=== PATIENT | female | born 1980 | race African-American/Black ===

== ENCOUNTER → 2017-01-10 | Outpatient (CLI) | payer MEDICAID ==
[2017-01-10 12:43] LABS: ABSOLUTE EOSINOPHILS # (AUTO) 0.1 10^3/uL (0.0-0.6); ABSOLUTE LYMPHOCYTES (AUTO) 2.1 10^3/uL (0.5-4.7); ABSOLUTE MONOCYTES (AUTO) 0.5 10^3/uL (0.1-1.4); ABSOLUTE NEUT (AUTO) 2.4 10^3/uL (1.7-8.2); BASOPHILS % (AUTO) 0.9 % (0-2); EOSINOPHILS % (AUTO) 1.8 % (0-6); HEMATOCRIT 29.5 % (36.0-47.0); HEMOGLOBIN 9.6 g/dL (12.0-15.5); HGB HCT DIFFERENCE -0.7; LYMPHOCYTES % (AUTO) 40.8 % (13-45); MEAN CORPUSCULAR HEMOGLOBIN 23.5 pg (27.0-33.4); MEAN CORPUSCULAR HGB CONC 32.5 g/dL (32.0-36.0); MEAN CORPUSCULAR VOLUME 72 fl (80-97); MONOCYTES % (AUTO) 9.7 % (3-13); RED BLOOD COUNT 4.08 10^6/uL (3.72-5.28); RED CELL DISTRIBUTION WIDTH 15.2 % (11.5-14.0); SEGMENTED NEUTROPHILS % (AUTO) 46.8 % (42-78); WHITE BLOOD COUNT 5.1 10^3/uL (4.0-10.5)
[2017-01-10 13:21] LABS: ALANINE AMINOTRANSFERASE 27 U/L (9-52); ALBUMIN 3.8 g/dL (3.5-5.0); ALKALINE PHOSPHATASE 78 U/L (38-126); ANION GAP 7 (5-19); ASPARTATE AMINO TRANSFERASE 28 U/L (14-36); BILIRUBIN,DIRECT 0.3 mg/dL (0.0-0.4); BILIRUBIN,TOTAL 1.2 mg/dL (0.2-1.3); BLOOD UREA NITROGEN 7 mg/dL (7-20); CALCIUM 9.4 mg/dL (8.4-10.2); CARBON DIOXIDE 26 mmol/L (22-30); CHLORIDE 105 mmol/L (98-107); CHOLESTEROL 132.36 mg/dL (0-200); CREATININE RESULT 0.82 mg/dL (0.52-1.25); Direct HDL 71 mg/dL (>40); GLUCOSE 74 mg/dL (75-110); POTASSIUM 4.4 mmol/L (3.6-5.0); SODIUM 138.2 mmol/L (137-145); TOTAL PROTEIN 7.4 g/dL (6.3-8.2); TRIGLYCERIDES 52 mg/dL (<150)
[2017-01-10 13:32] LABS: DIRECT LDL 40 mg/dL (<100)
--- NOTE | 2017-01-11 17:52 | RADIOLOGY REPORT (SQ) ---
EXAM DESCRIPTION: SACRUM AND COCCYX COMPLETED DATE/TIME: 01/10/2017 11:52 am REASON FOR STUDY: LOW BACK PAIN COMPARISON: None. NUMBER OF VIEWS: Three views. TECHNIQUE: AP, lateral, and tilt views of the sacrum and coccyx. LIMITATIONS: None. FINDINGS: MINERALIZATION: Normal. BONES: No acute fracture or dislocation. Mild bony sclerosis along the right and left SI joints with out joint space narrowing SOFT TISSUES: No soft tissue swelling. No foreign body. OTHER: No other significant finding. IMPRESSION: Mild bony sclerosis along both innominate bones at the SI joints from sacroiliitis. No SI joint space narrowing. TECHNICAL DOCUMENTATION: JOB ID: [id number] [employer]- All Rights Reserved
--- NOTE | 2017-01-11 17:53 | RADIOLOGY REPORT (SQ) ---
EXAM DESCRIPTION: LUMBAR SPINE COMPLETE COMPLETED DATE/TIME: 01/10/2017 11:52 am REASON FOR STUDY: LOW BACK PAIN COMPARISON: Sacrum films same date NUMBER OF VIEWS: Five views including obliques. TECHNIQUE: AP, lateral, oblique, and sacral radiographic images acquired of the lumbar spine. LIMITATIONS: None. FINDINGS: MINERALIZATION: Normal. SEGMENTATION: Normal. No transitional anatomy. ALIGNMENT: Normal. VERTEBRAE: Maintained height. No fracture or worrisome bone lesion. DISCS: Preserved height. No significant osteophytes or end plate irregularity. POSTERIOR ELEMENTS: Pedicles and facets are intact. No pars defect or posterior arch defects. HARDWARE: None in the spine. PARASPINAL SOFT TISSUES: Normal. PELVIS: Bilateral SI joint sclerosis without joint space narrowing OTHER: No other significant finding. IMPRESSION: Bilateral SI joint sclerosis Otherwise unremarkable lumbar spine films TECHNICAL DOCUMENTATION: JOB ID: [id number] [employer]- All Rights Reserved
== END ==
LOC: OD 11:10
PROVIDERS: ATTEND Family Medicine Geriatric Medicine
DX: E66.9 Obesity, unspecified (principal); J45.20 Mild intermittent asthma, uncomplicated; E53.8 Deficiency of other specified B group vitamins; Z79.899 Other long term (current) drug therapy
CPT/HCPCS: 36415; 72110; 72220; 80053; 80061; 82607; 84443; 85025

== ENCOUNTER → 2017-09-20 | Outpatient (CLI) | payer MEDICAID ==
[2017-09-20 17:38] LABS: FERRITIN 7.74 ng/mL (6.2-137.0)
[2017-09-20 17:43] LABS: IRON(TIBC) < 10.1 ug/dL (37-170)
== END ==
LOC: OD 16:00
PROVIDERS: ATTEND Family Medicine Geriatric Medicine
DX: D64.9 Anemia, unspecified (principal)
CPT/HCPCS: 36415; 82728; 83540; 83550; 84466

== ENCOUNTER → 2017-12-16 | Outpatient (CLI) | payer MEDICAID ==
[2017-12-18 18:21] LABS: ABSOLUTE BASOPHILS # (AUTO) 0.1 10^3/uL (0.0-0.2); ABSOLUTE LYMPHOCYTES (AUTO) 2.2 10^3/uL (0.5-4.7); ABSOLUTE MONOCYTES (AUTO) 0.5 10^3/uL (0.1-1.4); ABSOLUTE NEUT (AUTO) 3.6 10^3/uL (1.7-8.2); ABSOLUTE RETICS # 0.076 10^6/uL (0.028-0.122); BASOPHILS % (AUTO) 0.9 % (0-2); EOSINOPHILS % (AUTO) 0.7 % (0-6); HEMATOCRIT 34.4 % (36.0-47.0); HEMOGLOBIN 11.1 g/dL (12.0-15.5); LYMPHOCYTES % (AUTO) 34.6 % (13-45); MEAN CORPUSCULAR HEMOGLOBIN 23.9 pg (27.0-33.4); MEAN CORPUSCULAR HGB CONC 32.2 g/dL (32.0-36.0); MEAN CORPUSCULAR VOLUME 74 fl (80-97); MONOCYTES % (AUTO) 7.9 % (3-13); PLATELET COUNT 273 10^3/uL (150-450); RED BLOOD COUNT 4.64 10^6/uL (3.72-5.28); RED CELL DISTRIBUTION WIDTH 15.8 % (11.5-14.0); RETICULOCYTE COUNT (AUTO) 1.64 % (0.66-2.85); SEGMENTED NEUTROPHILS % (AUTO) 55.9 % (42-78); TOTAL CELLS COUNTED % (AUTO) 100 %; WHITE BLOOD COUNT 6.4 10^3/uL (4.0-10.5)
[2017-12-18 18:35] LABS: IRON(TIBC) 26.1 ug/dL (37-170)
--- NOTE | 2017-12-19 08:18 | RADIOLOGY REPORT (SQ) ---
EXAM DESCRIPTION: C SP 4 OR 5 VIEWS COMPLETED DATE/TIME: 12/18/2017 6:07 pm REASON FOR STUDY: NECK PAIN M54.2 CERVICALGIA COMPARISON: None. NUMBER OF VIEWS: Five views. TECHNIQUE: AP, lateral, obliques and odontoid radiographic images acquired of the cervical spine. LIMITATIONS: None. FINDINGS: MINERALIZATION: Normal. ALIGNMENT: Anatomic. VERTEBRAE: Vertebral bodies of normal height. DISCS: No significant osteophytes or sclerosis. Disc height maintained. FORAMINA: No osteophytes or foraminal narrowing. LATERAL AND POSTERIOR ELEMENTS: Facets, lateral masses and spinous processes without significant find ings. HARDWARE: None in the spine. SOFT TISSUES: No masses or calcifications. Lung apices clear. OTHER: No other significant finding. IMPRESSION: NO SIGNIFICANT RADIOGRAPHIC FINDING IN THE CERVICAL SPINE. TECHNICAL DOCUMENTATION: JOB ID: [id number] [employer]- All Rights Reserved Reading location - IP/workstation name: [email or web address]
[2017-12-23 13:37] LABS: HGB A 97.5 % (96.4-98.8); HGB A2 1.3 % (1.8-3.2); HGB SOLUBILITY RESULT Negative (Negative)
== END ==
LOC: OD 17:13
PROVIDERS: ATTEND Family Medicine Geriatric Medicine
DX: M54.2 Cervicalgia (principal); D64.9 Anemia, unspecified
CPT/HCPCS: 36415; 82728; 83020; 83540; 83550; 84466; 85025; 85045

== ENCOUNTER → 2017-12-18 | Outpatient (CLI) | payer MEDICAID ==
--- NOTE | 2017-12-19 08:18 | RADIOLOGY REPORT (SQ) ---
EXAM DESCRIPTION: C SP 4 OR 5 VIEWS COMPLETED DATE/TIME: 12/18/2017 6:07 pm REASON FOR STUDY: NECK PAIN M54.2 CERVICALGIA COMPARISON: None. NUMBER OF VIEWS: Five views. TECHNIQUE: AP, lateral, obliques and odontoid radiographic images acquired of the cervical spine. LIMITATIONS: None. FINDINGS: MINERALIZATION: Normal. ALIGNMENT: Anatomic. VERTEBRAE: Vertebral bodies of normal height. DISCS: No significant osteophytes or sclerosis. Disc height maintained. FORAMINA: No osteophytes or foraminal narrowing. LATERAL AND POSTERIOR ELEMENTS: Facets, lateral masses and spinous processes without significant findings. HARDWARE: None in the spine. SOFT TISSUES: No masses or calcifications. Lung apices clear. OTHER: No other significant finding. IMPRESSION: NO SIGNIFICANT RADIOGRAPHIC FINDING IN THE CERVICAL SPINE. TECHNICAL DOCUMENTATION: JOB ID: [id number] [employer]- All Rights Reserved Reading location - IP/workstation name: [email or web address] <Electronically signed by VALERIY MCKEON MD in OV> 12/19/17 0818 MTDD
== END ==
LOC: OD 17:58
PROVIDERS: ATTEND Family Medicine Geriatric Medicine
DX: M54.2 Cervicalgia (principal)
CPT/HCPCS: 72050

== ENCOUNTER → 2018-02-20 | Outpatient (CLI) | payer BC ==
--- NOTE | 2018-02-20 09:51 | RADIOLOGY REPORT (SQ) ---
EXAM DESCRIPTION: FOOT LEFT COMPLETE COMPLETED DATE/TIME: 02/20/2018 9:36 am REASON FOR STUDY: LEFT FOOT AND ANKLE PAIN COMPARISON: None. NUMBER OF VIEWS: Three views. TECHNIQUE: AP, lateral and oblique radiographic images acquired of the left foot. LIMITATIONS: None. FINDINGS: MINERALIZATION: Normal. BONES: No acute fracture or dislocation. No worrisome bone lesions. JOINTS: Hallux valgus deformity at the first metatarsophalangeal joint with associated bunion. SOFT TISSUES: No soft tissue swelling. No foreign body. OTHER: No other significant finding. IMPRESSION: 1. No acute osseous findings. 2. Hallux valgus deformity at the first metatarsophalangeal joint and associated bunion. TECHNICAL DOCUMENTATION: JOB ID: [id number] [employer]- All Rights Reserved Reading location - IP/workstation name: [email or web address]
--- NOTE | 2018-02-20 09:52 | RADIOLOGY REPORT (SQ) ---
EXAM DESCRIPTION: ANKLE LEFT COMPLETE COMPLETED DATE/TIME: 02/20/2018 9:36 am REASON FOR STUDY: LEFT FOOT AND ANKLE PAIN COMPARISON: None. NUMBER OF VIEWS: Three views. TECHNIQUE: AP, lateral, and oblique radiographic images acquired of the left ankle. LIMITATIONS: None. FINDINGS: MINERALIZATION: Normal. BONES: No acute fracture or dislocation. No worrisome bone lesions. JOINTS: No effusions. SOFT TISSUES: Mild soft tissue swelling external to the medial malleolus. No foreign body. OTHER: No other significant finding. IMPRESSION: 1. No acute osseous findings. 2. Mild soft tissue swelling. Correlation suggested. TECHNICAL DOCUMENTATION: JOB ID: [id number] [employer]- All Rights Reserved Reading location - IP/workstation name: [email or web address]
== END ==
LOC: OD 09:08
PROVIDERS: ATTEND Family Medicine Geriatric Medicine
DX: M25.572 Pain in left ankle and joints of left foot (principal)
CPT/HCPCS: 36415; 84550

== ENCOUNTER → 2018-04-04 | Outpatient (CLI) | payer BC ==
--- NOTE | 2018-04-04 12:52 | RADIOLOGY REPORT (SQ) ---
EXAM DESCRIPTION: U/S ABDOMEN COMPLETE W/O DOP COMPLETED DATE/TIME: 04/04/2018 9:46 am REASON FOR STUDY: LUQ PAIN (R10.12), EPIGASTRIC PAIN (R10.13), IRON DEFICIENCY (D50.0) R10.12 LEFT UPPER QUADRANT PAIN COMPARISON: None. TECHNIQUE: Dynamic and static grayscale images acquired of the abdomen and recorded on PACS. Additio nal selected color Doppler and spectral images recorded. LIMITATIONS: None. FINDINGS: PANCREAS: No masses. Visualized pancreatic duct normal caliber. LIVER: No masses. Increased echogenicity. LIVER VASCULATURE: Normal directional flow of the main portal vein and hepatic veins. GALLBLADDER: Multiple small gallstones. No wall thickening or pericholecystic fluid. ULTRASOUND-DETECTED BLANCAS'S SIGN: Negative. INTRAHEPATIC DUCTS AND COMMON DUCT: CBD and intrahepatic ducts normal caliber. No filling defects. INFERIOR VENA CAVA: Patent. AORTA: No aneurysm. RIGHT KIDNEY: Normal size, 10.5 cm. Normal echogenicity. No solid or suspicious masses. No hyd ronephrosis. No calcifications. LEFT KIDNEY: Normal size, 11 cm. Normal echogenicity. No solid or suspicious masses. No hydron ephrosis. No calcifications. SPLEEN: Normal size, 9.9 cm. No solid masses. PERITONEAL AND PLEURAL SPACES: No ascites or effusions. OTHER: No other significant finding. IMPRESSION: Cholelithiasis. Fatty infiltration of the liver. TECHNICAL DOCUMENTATION: JOB ID: [id number] [employer]- All Rights Reserved Reading location - IP/workstation name: [email or web address]
== END ==
LOC: RAD 08:01
PROVIDERS: ATTEND Internal Medicine Gastroenterology
DX: K80.20 Calculus of gallbladder without cholecystitis without obstruction (principal); R10.12 Left upper quadrant pain; R10.13 Epigastric pain; D50.0 Iron deficiency anemia secondary to blood loss (chronic)
CPT/HCPCS: 76700

== ENCOUNTER 2018-04-13 00:25 | Observation (INO) | payer BC ==
[2018-04-13] MEDS ORDERED: FENTANYL CITRATE INJ/PF 100 MCG/2 ML AMPUL IV ONE (01:23)
[2018-04-13] MEDS ORDERED: NORMAL SALINE 1000 ML 1,000 ML IV ONE (01:23)
[2018-04-13 01:40] LABS: ABSOLUTE BASOPHILS # (AUTO) 0.1 10^3/uL (0.0-0.2); ABSOLUTE EOSINOPHILS # (AUTO) 0.1 10^3/uL (0.0-0.6); ABSOLUTE LYMPHOCYTES (AUTO) 1.3 10^3/uL (0.5-4.7); ABSOLUTE MONOCYTES (AUTO) 0.5 10^3/uL (0.1-1.4); ABSOLUTE NEUT (AUTO) 6.2 10^3/uL (1.7-8.2); BASOPHILS % (AUTO) 0.8 % (0-2); EOSINOPHILS % (AUTO) 1.6 % (0-6); HEMATOCRIT 33.8 % (36.0-47.0); HEMOGLOBIN 11.1 g/dL (12.0-15.5); LYMPHOCYTES % (AUTO) 15.5 % (13-45); MEAN CORPUSCULAR HEMOGLOBIN 25.5 pg (27.0-33.4); MEAN CORPUSCULAR HGB CONC 32.9 g/dL (32.0-36.0); MEAN CORPUSCULAR VOLUME 78 fl (80-97); MONOCYTES % (AUTO) 6.5 % (3-13); PLATELET COUNT 263 10^3/uL (150-450); RED BLOOD COUNT 4.36 10^6/uL (3.72-5.28); RED CELL DISTRIBUTION WIDTH 16.2 % (11.5-14.0); SEGMENTED NEUTROPHILS % (AUTO) 75.6 % (42-78); TOTAL CELLS COUNTED % (AUTO) 100 %; WHITE BLOOD COUNT 8.2 10^3/uL (4.0-10.5)
[2018-04-13 02:07] LABS: ALANINE AMINOTRANSFERASE 74 U/L (9-52); ALBUMIN 3.7 g/dL (3.5-5.0); ALKALINE PHOSPHATASE 105 U/L (38-126); ANION GAP 8 (5-19); ASPARTATE AMINO TRANSFERASE 182 U/L (14-36); BILIRUBIN,DIRECT 0.4 mg/dL (0.0-0.4); BILIRUBIN,TOTAL 0.6 mg/dL (0.2-1.3); BLOOD UREA NITROGEN 9 mg/dL (7-20); CALCIUM 8.9 mg/dL (8.4-10.2); CARBON DIOXIDE 24 mmol/L (22-30); CHLORIDE 109 mmol/L (98-107); GLUCOSE 83 mg/dL (75-110); LIPASE 109.8 U/L (23-300); POTASSIUM 4.7 mmol/L (3.6-5.0); SODIUM 141.1 mmol/L (137-145); TOTAL PROTEIN 7.5 g/dL (6.3-8.2)
--- NOTE | 2018-04-13 02:11 | ER Document Report ---
ED General - General Chief Complaint: Abdominal Pain Stated Complaint: ABDOMINAL PAIN Time Seen by Provider: 04/13/18 01:05 Mode of Arrival: Ambulatory Information source: Patient, Relative TRAVEL OUTSIDE OF THE [place] IN LAST 30 DAYS: No - HPI Patient complains to provider of: abominal pain Onset: Other - This is a 37-year-old female that presents for evaluation of abdominal pain. She has had recurrent abdominal pain in the past for which she is undergone evaluation in the GI clinic undergoing endoscopy as well as colonoscopy without any other obvious cause being identified for abdominal pain she subsequently underwent abdominal ultrasound at which time she was identified to have some gallbladder stones and referred to a general surgeon. She has not had any visits to the general surgeon since the referral 3 weeks prior but has had multiple episodes of intermittent abdominal pain since then. She is uncertain whether or not it is related to gallbladder but is concerned tonight it began while they were at home without any other issues going on. Denies any fevers or chills denies any emesis does endorse intense abdominal pain worst in the epigastrium. - Related Data Allergies/Adverse Reactions: oxycodone [From Percocet] Allergy (Verified 04/13/18 01:47) Penicillins Allergy (Verified 04/13/18 01:47) Sulfa (Sulfonamide Antibiotics) Allergy (Verified 04/13/18 01:47) Past Medical History - General Information source: Patient, Relative - Social History Smoking Status: Unknown if Ever Smoked Frequency of alcohol use: None Drug Abuse: None Family History: Reviewed & Not Pertinent Patient has suicidal ideation: No Patient has homicidal ideation: No Renal/ Medical History: Reports: Hx Ovarian Cysts. Denies: Hx Peritoneal Dialysis Past Surgical History: Reports: Hx Abdominal Surgery - gastric sleeve Review of Systems - Review of Systems -: Yes All other systems reviewed and negative Physical Exam - Vital signs Vitals: Temp Pulse Resp BP Pulse Ox 98.4 F 87 20 112/76 100 04/13/18 00:43 04/13/18 00:43 04/13/18 00:43 04/13/18 00:43 04/13/18 00:43 - General General appearance: Anxious In distress: Moderate - HEENT Head: Normocephalic Eyes: Normal Conjunctiva: Normal Cornea: Normal Extraocular movements intact: Yes Eyelashes: Normal Pupils: PERRL - Respiratory Respiratory status: No respiratory distress Chest status: Nontender Breath sounds: Normal Chest palpation: Normal - Cardiovascular Rhythm: Regular Heart sounds: Normal auscultation Murmur: No - Abdominal Inspection: Normal Distension: No distension Tenderness: Yoder's sign Organomegaly: No organomegaly - Back Back: Normal - Extremities General upper extremity: Normal inspection, Nontender, Normal ROM, Normal strength General lower extremity: Normal inspection, Nontender, Normal ROM, Normal strength - Neurological Neuro grossly intact: Yes Cognition: Normal Orientation: AAOx4 [place] Coma Scale Eye Opening: Spontaneous Ger Coma Scale Verbal: Oriented [place] Coma Scale Motor: Obeys Commands [place] Coma Scale Total: 15 Speech: Normal Motor strength normal: LUE, RUE, LLE, RLE - Psychological Associated symptoms: Normal affect Course - Re-evaluation Re-evalutation: 37 yo female with concern for biliary colic. Will obtain cbc and lfts and ultrasound. will administer analgesia and antiemetic. Patient with noted gallstones, modestly elevated LFTs with a fatty liver infiltrate. She is persistently having pain despite administration of analgesia, given the concern for possible symptomatic Aubrie lithiasis will obtain surgical consult. Have spoken to Dr. Pepito Marcus, he agrees to admit this patient for potential cholecystectomy. Will defer administration of anti-biotic at this time. We will reassess as necessary while in emergency department. - Vital Signs Vital signs: Temp Pulse Resp BP Pulse Ox 97.8 F 79 24 H 109/68 100 04/13/18 01:44 04/13/18 01:44 04/13/18 01:44 04/13/18 01:44 04/13/18 01:44 - Laboratory Result Diagrams: 04/13/18 01:30 04/13/18 01:30 Laboratory results interpreted by me: 04/13/18 04/13/18 01:30 01:30 Hgb 11.1 L Hct 33.8 L MCV 78 L MCH 25.5 L RDW 16.2 H Chloride 109 H AST 182 H ALT 74 H Discharge - Discharge Clinical Impression: Biliary colic Abdominal pain Qualifiers: Abdominal location: unspecified location Qualified Code(s): R10.9 - Unspecified abdominal pain Disposition: ADMITTED INPATIENT Admitting Provider: Surgicalist Unit Admitted: Surgical Floor Referrals: LUIS SHEA MD [Primary Care Provider] - Follow up as needed
[2018-04-13 02:41] LABS: APPEARANCE,URINE CLEAR; BILIRUBIN,URINE NEGATIVE (NEGATIVE); COLOR,URINE STRAW; GLUCOSE, URINE NEGATIVE (NEGATIVE); KETONES,URINE NEGATIVE (NEGATIVE); LEUKOCYTE ESTERASE,URINE NEGATIVE (NEGATIVE); NITRITE,URINE NEGATIVE (NEGATIVE); PROTEIN,URINE NEGATIVE (NEGATIVE); URINE SPECIFIC GRAVITY 1.005; UROBILINOGEN,URINE NEGATIVE mg/dL (<2.0)
--- NOTE | 2018-04-13 03:02 | RADIOLOGY REPORT (SQ) ---
EXAM DESCRIPTION: US ABDOMEN LIMITED COMPLETED DATE/TME: 04/13/2018 01:22 CLINICAL HISTORY: 37 years, Female, concern for cholecystitis COMPARISON: 04/04/2018 ultrasound. TECHNIQUE: Limited ultrasound of the right upper quadrant LIMITATIONS: None. FINDINGS: Echogenic appearance to the liver consistent with fatty infiltrative change. Multiple mobile shadowing stones throughout the gallbladder lumen. Patient had pain with palpation over the right upper quadrant. CBD measures 4.1 mm. The visualized portions of the right kidney, pancreas, and abdominal aorta are unremarkable. No ascites. No gallbladder wall thickening or pericholecystic fluid. IMPRESSION: Cholelithiasis. The patient had pain with palpation over the right upper quadrant. No gallbladder wall thickening or pericholecystic fluid. Fatty infiltrative change to the liver 2010 [employer]- All Rights Reserved
[2018-04-13] MEDS: MORPHINE SULFATE 10 MG/ML INJ IV PRN ×5 (04:17→22:08)
[2018-04-13] MEDS: NORMAL SALINE 1000 ML 1,000 ML IV PRN (04:18)
[2018-04-13] MEDS: ONDANSETRON HCL INJ/PF 4 MG/2 ML SDV IV PRN ×4 (08:41→22:08)
[2018-04-13] MEDS ORDERED: ROCURONIUM BROMIDE INJ 50 MG/5 ML VIAL IV ONE (09:40)
[2018-04-13] MEDS ORDERED: SUCCINYLCHOLINE CHLORIDE INJ 200 MG/10 ML VIAL ONE (09:40)
--- NOTE | 2018-04-13 13:31 | PDOC H&P ---
History of Present Illness Admission Date/PCP: 04/13/18 03:39 LUIS STAPLETON MD Patient complains of: Right upper quadrant/epigastric abdominal pain History of Present Illness: MADDY STERN is a 37 year old female admitted with severe right upper quadrant/epigastric abdominal pain. She was found to have gallstones on ultrasound. Patient has an extensive abdominal history. The patient underwent EGD and colonoscopy by Dr. Stapleton, which were normal. Patient has a history of gastric sleeve resection for weight loss. Most recently, the patient reports increasing difficulty with eating. Her last attack occurred after eating avocados followed by buttered popcorn. Her pain occurs in the right upper quadrant. It is crampy in nature and severe. It lasts for several hours and causes sweating and nausea. Nothing makes her pain better, eating makes it worse. The patient presented to the ER last night due to abdominal pain that would not subside. Her pain is improved today after receiving pain medications , but it is still present. Past Medical History Pulmonary Medical History: Reports: Asthma Musculoskeltal Medical History: Reports: Arthritis Hematology: Reports: Anemia Past Surgical History Past Surgical History: Reports: Other - Colonoscopy, EGD, gastric sleeve resection. Social History Smoking Status: Never Smoker Frequency of Alcohol Use: None Hx Recreational Drug Use: No Drugs: None Family History Family History: Reviewed & Not Pertinent Parental Family History Reviewed: Yes Children Family History Reviewed: Yes Sibling(s) Family History Reviewed.: Yes Medication/Allergy Home Medications: Diclofenac Sodium [Voltaren] 1 applic TP BID 04/13/18 Duloxetine HCl [Cymbalta 20 Mg Capsule.Dr] 20 mg PO DAILY 04/13/18 Prednisone 5 mg PO DAILY 04/13/18 Allergies/Adverse Reactions: oxycodone [From Percocet] Allergy (Verified 04/13/18 01:47) Penicillins Allergy (Verified 04/13/18 01:47) Sulfa (Sulfonamide Antibiotics) Allergy (Verified 04/13/18 01:47) Review of Systems Constitutional: ABSENT: chills, fever(s), weakness Eyes: ABSENT: visual disturbances Ears: ABSENT: hearing changes Nose, Mouth, and Throat: ABSENT: sore throat Cardiovascular: ABSENT: chest pain, dyspnea on exertion Respiratory: ABSENT: cough, dyspnea Gastrointestinal: PRESENT: abdominal pain, nausea, vomiting Genitourinary: ABSENT: dysuria Musculoskeletal: ABSENT: back pain Integumentary: ABSENT: pruritus, rash Neurological: ABSENT: abnormal movements, abnormal speech, confusion, convulsions, dizziness Psychiatric: ABSENT: anxiety, depression Endocrine: ABSENT: cold intolerance, heat intolerance Hematologic/Lymphatic: ABSENT: easy bleeding, easy bruising Physical Exam Vital Signs: Temp Pulse Resp BP Pulse Ox 97.6 F 69 12 117/72 100 04/13/18 07:31 04/13/18 07:31 04/13/18 07:31 04/13/18 07:31 04/13/18 07:31 Intake & Output 04/12/18 04/13/18 04/14/18 06:59 06:59 06:59 Intake Total 250 Balance 250 Weight 93.8 kg General appearance: PRESENT: no acute distress, obese Head exam: PRESENT: atraumatic, normocephalic Eye exam: PRESENT: EOMI, PERRLA. ABSENT: scleral icterus Mouth exam: PRESENT: moist, neck supple Teeth exam: ABSENT: poor dentation Neck exam: ABSENT: meningismus, tenderness, thyromegaly, tracheal deviation Respiratory exam: PRESENT: clear to auscultation liv. ABSENT: chest wall tenderness, rales, tachypnea Cardiovascular exam: PRESENT: RRR Pulses: PRESENT: normal radial pulses Vascular exam: ABSENT: pallor GI/Abdominal exam: PRESENT: soft, tenderness. ABSENT: rebound Rectal exam: PRESENT: deferred Extremities exam: ABSENT: clubbing Musculoskeletal exam: ABSENT: deformity Neurological exam: PRESENT: alert, awake, oriented to person, oriented to place , oriented to time, oriented to situation, CN II-XII grossly intact Psychiatric exam: ABSENT: agitated, anxious, depressed Focused psych exam: ABSENT: delusional Skin exam: ABSENT: cyanosis, erythema, jaundice Results Impressions: Abdomen Ultrasound 04/13/18 01:22 IMPRESSION: Cholelithiasis. The patient had pain with palpation over the right upper quadrant. No gallbladder wall thickening or pericholecystic fluid. Fatty infiltrative change to the liver 2010 [employer]- All Rights Reserved Assessment & Plan - Diagnosis (1) Gallstones Is this a current diagnosis for this admission?: Yes (2) Biliary colic Is this a current diagnosis for this admission?: Yes - Plan Summary Plan Summary: This is a patient with refractory right upper quadrant pain and gallstones. I believe the patient is experiencing early cystitis. I have admitted the patient the hospital. Plan for cholecystectomy DAVON. Risks/benefits discussed , informed consent obtained, and all questions answered.
[2018-04-13] MEDS ORDERED: ACETAMINOPHEN SUSP 160 MG/5 ML ORAL SYRING PO PRN (22:38)
[2018-04-13] MEDS ORDERED: ACETAMINOPHEN SOLN 325 MG/10.15 ML UDCUP ONE (22:57)
[2018-04-14] MEDS: MORPHINE SULFATE 10 MG/ML INJ IV PRN ×2 (03:09→12:18)
[2018-04-14] MEDS: ONDANSETRON HCL INJ/PF 4 MG/2 ML SDV IV PRN ×3 (03:09→17:19)
[2018-04-14] MEDS: NORMAL SALINE 1000 ML 1,000 ML IV PRN (03:10)
[2018-04-14 06:38] LABS: ALANINE AMINOTRANSFERASE 65 U/L (9-52); ALBUMIN 3.1 g/dL (3.5-5.0); ALKALINE PHOSPHATASE 89 U/L (38-126); ANION GAP 8 (5-19); ASPARTATE AMINO TRANSFERASE 64 U/L (14-36); BILIRUBIN,DIRECT 0.1 mg/dL (0.0-0.4); BILIRUBIN,TOTAL 0.7 mg/dL (0.2-1.3); BLOOD UREA NITROGEN 5 mg/dL (7-20); CALCIUM 8.8 mg/dL (8.4-10.2); CARBON DIOXIDE 24 mmol/L (22-30); CHLORIDE 109 mmol/L (98-107); GLUCOSE 75 mg/dL (75-110); SODIUM 141.3 mmol/L (137-145); TOTAL PROTEIN 6.3 g/dL (6.3-8.2)
[2018-04-14 06:45] LABS: POTASSIUM 4.3 mmol/L (3.6-5.0)
[2018-04-14] MEDS ORDERED: BUPIVACAINE HCL 0.5 % INJ/PF 30 ML SDV ONE (08:33)
[2018-04-14] MEDS ORDERED: METRONIDAZOLE 500 MG/NS RTU 500 MG/100 ML RTUPB IV ONE (08:42)
[2018-04-14] MEDS ORDERED: FENTANYL CITRATE INJ/PF 100 MCG/2 ML AMPUL ONE (09:09)
[2018-04-14] MEDS ORDERED: DEXAMETHASONE SOD PHOSPHATE INJ 4 MG/1 ML VIAL ONE (09:09)
[2018-04-14] MEDS ORDERED: ONDANSETRON HCL INJ/PF 4 MG/2 ML SDV ONE (09:09)
[2018-04-14] MEDS ORDERED: MIDAZOLAM 2 MG/2 ML INJ ONE (09:09)
[2018-04-14] MEDS ORDERED: LIDOCAINE 2% INJ-PF (20 MG/ML) 10 ML AMPUL ONE (09:09)
[2018-04-14] MEDS ORDERED: PROPOFOL INJ 200 MG/20 ML VIAL IV ONE (09:10)
[2018-04-14] MEDS ORDERED: ACETAMINOPHEN 1,000 MG/100 ML RTUPB IV ONE (09:10)
[2018-04-14] MEDS ORDERED: SUGAMMADEX SODIUM 200 MG/2 ML SDV IV ONE (09:16)
--- NOTE | 2018-04-14 09:16 | Physician Advisory Note ---
Physician Advisor ProgressNote .: [facility] have reviewed the medical record for this patient. Physician Advisor Statement: Pt w/acute cholecystitis, needing surgery, requiring very frequent (q4-6 hrs) PRN high dose morphine IV/IV Zofran for control of sx for over 24 hrs, which requires close monitoring for potential adverse effects. Status: 1. If surgery was delayed until today due to clinical issues of pt, please document them explicitly, & wlll be appropriate to change to INpt status. 2. if pt continues to require frequent prn IV meds after surgery, or otherwise not able to safely d/c home later today after surgery, please document the ongoing issues/concerns, & may become appropriate for Inpatient status. Thanks! CK Addendum 04/15 at 7:56 AM r.e. status: Pt was originally to be d/c'd post op on 04/14, but this was not done. She has not been requiring frequent PRN meds since surg. However, she has had intermittent tachycardia post-op (which is different from pre-op), and persistent low-grade fevers in the 99s since surgery (also a clear acute change). - If she was not felt to be safe for d/c home on 04/14 PM due to these or other acute/ongoing clinical concerns, please document them - then should be appropraite for change to Inpatient status.
[2018-04-14] MEDS ORDERED: MORPHINE SULFATE 10 MG/ML INJ IV PRN (09:53)
[2018-04-14] MEDS ORDERED: FENTANYL CITRATE INJ/PF 100 MCG/2 ML AMPUL IV PRN ×3 (09:53)
[2018-04-14] MEDS ORDERED: DIPHENHYDRAMINE HCL 50 MG/ML VIAL IV PRN (09:53)
[2018-04-14] MEDS ORDERED: PROMETHAZINE HCL INJ 25 MG/1 ML VIAL IV PRN ×2 (09:53)
[2018-04-14] MEDS ORDERED: ONDANSETRON HCL INJ/PF 4 MG/2 ML SDV IV PRN (09:53)
[2018-04-14] MEDS ORDERED: MEPERIDINE HCL/PF INJ 25 MG/1 ML DISP.SYRIN IV PRN (09:53)
--- NOTE | 2018-04-14 10:25 | Operative Report ---
Operative Report DATE OF SURGERY: 04/14/18 PREOPERATIVE DIAGNOSIS: Symptomatic cholelithiasis with cholecystitis POSTOPERATIVE DIAGNOSIS: Same OPERATION: Laparoscopic cholecystectomy SURGEON: KARSON WILKINSON ANESTHESIA: GA TISSUE REMOVED OR ALTERED: 1 gallbladder with contents COMPLICATIONS: None ESTIMATED BLOOD LOSS: Minimal INTRAOPERATIVE FINDINGS: See below PROCEDURE: After obtaining informed consent, the patient was taken to the operating room. General Anesthesia was induced; the arms were extended, and the abdomen was exposed, and prepped and draped in a sterile fashion. Instrumentation was set up for laparoscopic cholecystectomy. Surgical plan and surgical timeout were conducted. A vertical incision was made above the umbilicus, and a verres needle was inserted uneventfully into the peritoneal cavity. Pneumoperitoneum was established. The verres needle was removed and a 5 mm trocar was inserted and a 5 mm flexible laparoscope was inserted. Visualization of the peritoneal cavity confirmed safe uneventful entry. Under direct visualization 3 additional 5 mm ports were established, one in the subxiphoid position and second in the subcostal position. Visualization of the hepatobiliary anatomy revealed no anatomic variations. A grasper was placed on the fundus of the gallbladder and the gallbladder is elevated over the right surface of the liver; a second grasper was used to grasp the infundibulum of the gallbladder. The neck of the gallbladder and junction with the cystic duct was dissected out. The Cystic artery was in its usual location medial and cephalad to the cystic duct. The cystic artery was surrounded with a right angle clamp, clipped twice proximally and divided with laparoscopic scissors. We now opened the triangle of Calot by dividing the peritoneal reflection on both the medial and lateral sides of the cystic duct infundibular junction. The critical view was obtained. We now made a small cystotomy in the cystic duct, and milked out several stones from the cystic duct. The duct was clipped distally once, then twice proximally then completely divided. The gallbladder was now removed from the undersurface of the liver using hook cautery dissection. Graspers were repositioned and the gallbladder was removed uneventfully from the abdominal cavity through the super umbilical port site incision. It was placed in a bag prior to extraction so that no stones or bile was spilled. The specimen was examined, then passed off to pathology for permanent analysis. We returned to the peritoneal cavity check for bleeding, and evidence of bile leak, and there was none. We Confirmed satisfactory placement of clips on cystic duct and cystic artery were secured . At this point we felt the operation was complete. The subcutaneous tissue was then anesthetized with quarter percent Marcaine Sponge and needle counts are correct. All ports removed under direct visualization pneumoperitoneum evacuated, and 5 mm port wounds closed with 0 Vicryl above the umbilicus, and 3-0 Vicryl suture, benzoin and Steri-Strips. The patient was extubated, and taken to the recovery room in stable condition.
[2018-04-14] MEDS ORDERED: KETOROLAC TROMETHAMINE INJ/PF 30 MG/1 ML SDV ONE (10:48)
[2018-04-14] MEDS ORDERED: PROMETHAZINE HCL INJ 25 MG/1 ML VIAL ONE (10:54)
[2018-04-14] MEDS ORDERED: MORPHINE SULFATE 10 MG/ML INJ ONE (11:09)
[2018-04-14] MEDS: KETOROLAC TROMETHAMINE 10 MG TABLET PO PRN ×2 (15:28→21:55)
[2018-04-15] MEDS: KETOROLAC TROMETHAMINE 10 MG TABLET PO PRN ×2 (04:04→10:01)
[2018-04-15 10:13] VITALS: BP 106/78
--- NOTE | 2018-04-15 12:41 | DISCHARGE SUMMARY E ---
Discharge Summary NAME: MADDY STERN : 1980 AGE: 37Y ADMITTED: 04/13/2018 DISCHARGED: 04/15/2018 REASON FOR ADMISSION: Acute abdominal pain. SUMMARY OF HOSPITALIZATION: The patient is a 37-year-old -[place] female, history of sleeve gastrectomy, history of abdominal pain, extensively evaluated by gastroenterology with upper and lower endoscopy, who has known gallstones. She is admitted with severe right upper quadrant pain felt secondary to cholelithiasis and cholecystitis. The patient was admitted to the surgical service, kept NPO on IV fluids. She was taken to the operating room by Dr. Layne on 04/14/2018, where she underwent uneventful laparoscopic cholecystectomy. She was found to have a gallbladder full of stones. Postoperatively, the patient did well, had no complications, and tolerated a diet. She was a bit slow to move about, but no postoperative issues. By the first postoperative day, she was felt to have received maximum benefit from hospitalization and was discharged home. FINAL DIAGNOSIS: CHOLECYSTITIS WITH CHOLELITHIASIS, status post laparoscopic cholecystectomy by Dr. Layne. DISPOSITION: The patient was discharged to home in the care of her family. Follow up with [facility], MAXIMO Bates, in 1 to 2 weeks; she will take Toradol as needed for pain, and Zofran as needed for nausea and vomiting. DICTATING PHYSICIAN: KARSON LAYNE M.D. [id number] PHY#: [id number] ID: [id number] JOB#: [id number] ACCT: [id number] cc:Jayson TOLEDO M.D. [facility],
--- NOTE | 2018-04-15 14:33 | PDOC PROGRESS REPORT ---
Subjective Progress Note for:: 04/15/18 Subjective:: Patient felt periumbilical not with some tenderness. No nausea or vomiting. Reason For Visit: CHOLECYSTITIS Physical Exam Vital Signs: Temp Pulse Resp BP Pulse Ox 99.1 F 90 17 106/78 100 04/15/18 10:09 04/15/18 10:09 04/15/18 10:09 04/15/18 10:09 04/15/18 10:09 Intake & Output 04/14/18 04/15/18 04/16/18 06:59 06:59 06:59 Intake Total 2179 4071 Output Total 600 355 Balance 1579 3716 Weight 93.8 kg 93.8 kg General appearance: PRESENT: no acute distress, cooperative GI/Abdominal exam: PRESENT: other - Soft, nondistended, wounds clean dry and intact. Subtle swelling at the periumbilical region with mild tenderness but no drainage and no erythema. Results Laboratory Results: 04/14/18 05:55 Impressions: Abdomen Ultrasound 04/13/18 01:22 IMPRESSION: Cholelithiasis. The patient had pain with palpation over the right upper quadrant. No gallbladder wall thickening or pericholecystic fluid. Fatty infiltrative change to the liver 2010 [employer]- All Rights Reserved Assessment & Plan - Diagnosis (1) Cholecystitis, acute with cholelithiasis Is this a current diagnosis for this admission?: Yes Plan: Status post laparoscopic cholecystectomy. Postoperative swelling at the umbilicus. No evidence of infection. At this point in her postoperative course with no nausea and vomiting and mild expected postoperative pain, I do not see indication for reexploration at this point. Suspect normal postop swelling. Will discharge patient home with follow-up. Patient to call us for any worsening problems.
== END 2018-04-15 15:15 | disposition home or self-care (01) ==
LOC: ER 00:25 → EH 03:39 → INTOOBSV 03:39 → 4N 04:46
PROVIDERS: ATTEND Surgery
PROC: 0FT44ZZ Resection of Gallbladder, Percutaneous Endoscopic Approach (ICD-10-PCS; principal; 2018-04-14 09:00)
DX: K80.10 Calculus of gallbladder with chronic cholecystitis without obstruction (principal); G89.18 Other acute postprocedural pain; Z90.3 Acquired absence of stomach [part of]
CPT/HCPCS: 99285; 96361; 96374; 36415 ×2; 82962; 83690; 85025; 80053 ×2; 81001; 88304 ×2; 76705; 47562; G0378 ×4; J2250; J3490 ×7; J1100; J3010 ×2; J1885; J2270 ×2; J2550; J0330; J2405 ×2; J7030 ×2; J2704; J0131; 790

== ENCOUNTER → 2018-06-11 | Outpatient (CLI) | payer SELFPAY ==
--- NOTE | 2018-06-11 16:53 | RADIOLOGY REPORT (SQ) ---
EXAM DESCRIPTION: CT HEAD COMBO COMPLETED DATE/TIME: 06/11/2018 4:34 pm REASON FOR STUDY: MIGRAINE HEADACHE G43.009 MIGRAINE W/O AURA, NOT INTRACTABLE, W/O STATUS MIGRA COMPARISON: None. TECHNIQUE: Axial images acquired through the brain without and with intravenous contrast. Images re viewed with bone, brain and subdural windows. Additional sagittal and coronal reconstructions were g enerated. Images stored on PACS. All CT scanners at this facility use dose modulation, iterative reconstruction, and/or weight based d osing when appropriate to reduce radiation dose to as low as reasonably achievable (ALARA). [facility]: Dose Right [facility]: CareDose [facility]: Dose Right [facility]: Teradose 4D [facility]: LoSo CONTRAST TYPE AND DOSE: contrast/concentration: Isovue 350.00 mg/ml; Total Contrast Delivered: 50.0 ml; Total Saline Delivered: 50.0 ml RENAL FUNCTION: None required. The patient is less than 50 years old. RADIATION DOSE: CT Rad equipment meets quality standard of care and radiation dose reduction techniq ues were employed. CTDIvol: 53.2 mGy. DLP: 2088 mGy-cm.. LIMITATIONS: None. FINDINGS: VENTRICLES: Normal size and contour. CEREBRUM: No masses. No hemorrhage. No midline shift. Normal razo/white matter differentiation. No ev idence for acute infarction. No enhancing lesions. CEREBELLUM: No masses. No hemorrhage. No alteration of density. No evidence for acute infarction. No enhancing lesions. EXTRA-AXIAL SPACES: No fluid collections. No enhancing lesions. ORBITS AND GLOBE: No intra- or extraconal masses. Normal contour of globe without masses. CALVARIUM: No fracture. PARANASAL SINUSES: No fluid or mucosal thickening. SOFT TISSUES: No mass or hematoma. OTHER: No other significant finding. IMPRESSION: NORMAL BRAIN CT WITHOUT AND WITH CONTRAST. EVIDENCE OF ACUTE STROKE: NO. TECHNICAL DOCUMENTATION: JOB ID: [id number] Quality ID # [id number]: Final reports with documentation of one or more dose reduction techniques (e.g., Au tomated exposure control, adjustment of the mA and/or kV according to patient size, use of iterative reconstruction technique) 2010 [employer]- All Rights Reserved Reading location - IP/workstation name: [email or web address]
== END ==
LOC: RAD 15:32
PROVIDERS: ATTEND Family Medicine Geriatric Medicine
DX: G43.009 Migraine without aura, not intractable, without status migrainosus (principal)
CPT/HCPCS: 70470

== ENCOUNTER → 2018-08-20 | Outpatient (CLI) | payer BC ==
--- NOTE | 2018-08-20 19:32 | RADIOLOGY REPORT (SQ) ---
EXAM DESCRIPTION: MRI HEAD COMBO COMPLETED DATE/TIME: 08/20/2018 7:12 pm REASON FOR STUDY: G43.109 MIGRAINE WITH AURA, NOT INTRACTABLE, W/O STATUS MIGRAINOSUS G43.109 MIGRA INE WITH AURA, NOT INTRACTABLE, W/O STATUS MIGR R51 HEADACHE H47.10 UNSPECIFIED PAPILLEDEMA COMPARISON: None. TECHNIQUE: Multiplanar imaging includes noncontrasted T1, T2, FLAIR, diffusion with ADC map and post gadolinium contrast T1 sequences. Images stored on PACS. CONTRAST TYPE AND DOSE: 15 mL Dotarem. RENAL FUNCTION: Not indicated. ACR Type II contrast agent associated with few, if any, unconfounded cases of NSF LIMITATIONS: None. FINDINGS: ANATOMY: No anomalies. Normal vascular flow voids. Pituitary fossa normal. CSF SPACES: Normal in size and contour. No hemorrhage. CEREBRUM: Sulci and gyri normal in size and contour. Normal white matter signal on FLAIR imaging. No evidence of hemorrhage, mass, or extraaxial fluid collection. No abnormal enhancement post contrast. POSTERIOR FOSSA: No signal alteration. No hemorrhage. No edema, masses, or mass effect. Internal vanessa tory canals, cerebellopontine angles, mastoids normal. No enhancing lesions. No abnormal enhancement post contrast. DIFFUSION IMAGING: Negative for acute or subacute infarction. ORBITS: No masses. Globes normal. PARANASAL SINUSES: No fluid levels. Mucosa normal. OTHER: No other significant finding. IMPRESSION: NORMAL MRI OF THE BRAIN WITHOUT AND WITH INTRAVENOUS GADOLINIUM CONTRAST. EVIDENCE OF ACUTE STROKE: NO. TECHNICAL DOCUMENTATION: JOB ID: [id number] [employer]- All Rights Reserved Reading location - IP/workstation name: [email or web address]
== END ==
LOC: RAD 17:58
PROVIDERS: ATTEND Pediatrics
DX: G43.109 Migraine with aura, not intractable, without status migrainosus (principal); H47.10 Unspecified papilledema
CPT/HCPCS: 70553

== ENCOUNTER → 2019-01-19 | Outpatient (CLI) | payer BC ==
--- NOTE | 2019-01-19 17:06 | RADIOLOGY REPORT (SQ) ---
EXAM DESCRIPTION: CHEST 2 VIEWS COMPLETED DATE/TIME: 01/19/2019 4:56 pm REASON FOR STUDY: J20.9 ACUTE BRONCHITIS, UNSPECIFIED COMPARISON: None. EXAM PARAMETERS: NUMBER OF VIEWS: two views TECHNIQUE: Digital Frontal and Lateral radiographic views of the chest acquired. RADIATION DOSE: NA LIMITATIONS: none FINDINGS: LUNGS AND PLEURA: No opacities, masses or pneumothorax. No pleural effusion. MEDIASTINUM AND HILAR STRUCTURES: No masses or contour abnormalities. HEART AND VASCULAR STRUCTURES: Heart normal size. No evidence for failure. BONES: No acute findings. HARDWARE: Clips right upper quadrant post cholecystectomy OTHER: No other significant finding. IMPRESSION: NO ACUTE RADIOGRAPHIC FINDING IN THE CHEST. TECHNICAL DOCUMENTATION: JOB ID: [id number] [employer]- All Rights Reserved Reading location - IP/workstation name: [email or web address]
== END ==
LOC: RAD 16:39
PROVIDERS: ATTEND Family Medicine Geriatric Medicine
DX: J20.9 Acute bronchitis, unspecified (principal); R05 Cough
CPT/HCPCS: 71046

== ENCOUNTER → 2019-03-13 | Outpatient (CLI) | payer BC, OTHER ==
--- NOTE | 2019-03-13 15:38 | RADIOLOGY REPORT (SQ) ---
EXAM DESCRIPTION: MRI CERVICAL SPINE WITHOUT COMPLETED DATE/TIME: 03/13/2019 2:48 pm REASON FOR STUDY: M54.2 CERVICALGIA M54.2 CERVICALGIA COMPARISON: None. TECHNIQUE: Sagittal and Axial imaging includes T1, T2, STIR and gradient echo sequences. LIMITATIONS: None. FINDINGS: ALIGNMENT: Normal. VERTEBRAE: Intact. BONE MARROW: Normal. No marrow replacement or reactive changes. DISCS: Normal. No significant abnormal signal or loss of height. HARDWARE: None in the spine. CORD AND BASE OF BRAIN: Normal in size and signal intensity. SOFT TISSUES: No soft tissue masses. C1-C2: No significant spinal stenosis. C2-C3: No significant spinal stenosis or exit foraminal stenosis. C3-C4: No significant spinal stenosis or exit foraminal stenosis. C4-C5: Central disc protrusion which impinges upon the cord. Mild spinal stenosis. No exit foramina l stenosis. C5-C6: No significant spinal stenosis or exit foraminal stenosis. C6-C7: No significant spinal stenosis or exit foraminal stenosis. C7-T1: No significant spinal stenosis or exit foraminal stenosis. UPPER THORACIC: Incompletely imaged. No significant spinal stenosis or exit foraminal stenosis. OTHER: No other significant finding. IMPRESSION: CENTRAL DISC PROTRUSION AT C4-C5 WITH CORD IMPINGEMENT. THE REMAINDER OF THE CERVICAL S PINE IS OTHERWISE UNREMARKABLE. TECHNICAL DOCUMENTATION: JOB ID: [id number] [employer]- All Rights Reserved Reading location - IP/workstation name: [email or web address]
== END ==
LOC: RAD 13:57
PROVIDERS: ATTEND Family Medicine Geriatric Medicine
DX: M50.221 Other cervical disc displacement at C4-C5 level (principal); M48.02 Spinal stenosis, cervical region
CPT/HCPCS: 72141

== ENCOUNTER → 2019-08-24 | Outpatient (CLI) | payer OTHER | LOC: OD 15:50 | PROVIDERS: ATTEND Family Medicine Geriatric Medicine | DX: K52.9 Noninfective gastroenteritis and colitis, unspecified (principal) | CPT/HCPCS: 36415; 83516; 83986; 86256 ==

== ENCOUNTER 2019-11-18 05:31 | Day surgery (SDC) | payer OTHER ==
[2019-11-13 10:18] LABS: ABSOLUTE BASOPHILS # (AUTO) 0.1 10^3/uL (0.0-0.2); ABSOLUTE EOSINOPHILS # (AUTO) 0.1 10^3/uL (0.0-0.6); ABSOLUTE LYMPHOCYTES (AUTO) 1.7 10^3/uL (0.5-4.7); ABSOLUTE MONOCYTES (AUTO) 0.5 10^3/uL (0.1-1.4); ABSOLUTE NEUT (AUTO) 3.6 10^3/uL (1.7-8.2); EOSINOPHILS % (AUTO) 1.2 % (0-6); HEMATOCRIT 41.5 % (36.0-47.0); HEMOGLOBIN 13.9 g/dL (12.0-15.5); LYMPHOCYTES % (AUTO) 29.1 % (13-45); MEAN CORPUSCULAR HEMOGLOBIN 29.2 pg (27.0-33.4); MEAN CORPUSCULAR HGB CONC 33.6 g/dL (32.0-36.0); MEAN CORPUSCULAR VOLUME 87 fl (80-97); MONOCYTES % (AUTO) 8.8 % (3-13); PLATELET COUNT 208 10^3/uL (150-450); RED BLOOD COUNT 4.78 10^6/uL (3.72-5.28); RED CELL DISTRIBUTION WIDTH 14.2 % (11.5-14.0); SEGMENTED NEUTROPHILS % (AUTO) 59.9 % (42-78); TOTAL CELLS COUNTED % (AUTO) 100 %
[2019-11-13 10:50] LABS: ANION GAP 5 (5-19); BLOOD UREA NITROGEN 11 mg/dL (7-20); CALCIUM 9.2 mg/dL (8.4-10.2); CARBON DIOXIDE 26 mmol/L (22-30); CHLORIDE 106 mmol/L (98-107); GLUCOSE 83 mg/dL (75-110); POTASSIUM 4.5 mmol/L (3.6-5.0)
[~2019-11-18 05:31] MED LIST: CLINDAMYCIN 600 MG/D5W RTU 600 MG/50 ML RTUPB IV ONE; CLINDAMYCIN 600 MG/D5W RTU 600 MG/50 ML RTUPB IV PRN; LACTATED RINGERS 1000 ML IV PRN; LIDOCAINE 0.5% INJ-PF (5 MG/ML) 50 ML SDV SUBCUT PRN
[2019-11-18] MEDS ORDERED: HYDROMORPHONE HCL INJ/PF 2 MG/ML AMPULE ONE (07:00)
[2019-11-18] MEDS ORDERED: FENTANYL CITRATE INJ/PF 100 MCG/2 ML AMPUL ONE ×2 (07:00→10:54)
[2019-11-18] MEDS ORDERED: PROMETHAZINE HCL INJ 25 MG/1 ML VIAL ONE (07:00)
[2019-11-18] MEDS ORDERED: MIDAZOLAM 2 MG/2 ML INJ ONE (07:00)
[2019-11-18] MEDS ORDERED: PROPOFOL 1,000 MG/100 ML INFUS..BTL IV ONE (07:00)
[2019-11-18] MEDS ORDERED: PROPOFOL INJ 200 MG/20 ML VIAL IV ONE (07:01)
[2019-11-18] MEDS ORDERED: THROMBIN (BOVINE) TOPICAL 5000 UNIT VIAL ONE (07:21)
[2019-11-18] MEDS ORDERED: BACITRACIN INJ 50,000 UNIT VIAL ONE (07:21)
[2019-11-18] MEDS ORDERED: KETAMINE HCL INJ 500 MG/10 ML VIAL ONE (07:21)
[2019-11-18] MEDS ORDERED: MORPHINE SULFATE 10 MG/ML INJ ONE (07:24)
[2019-11-18] MEDS ORDERED: ACETAMINOPHEN 1,000 MG/100 ML RTUPB IV ONE (07:30)
[2019-11-18] MEDS ORDERED: CLINDAMYCIN PHOSPHATE INJ 300 MG/2 ML SDV ONE (08:07)
[2019-11-18] MEDS ORDERED: MORPHINE SULFATE 10 MG/ML INJ IV PRN (09:07)
[2019-11-18] MEDS ORDERED: DIPHENHYDRAMINE HCL 50 MG/ML VIAL IV PRN ×2 (09:07→10:50)
[2019-11-18] MEDS ORDERED: FENTANYL CITRATE INJ/PF 100 MCG/2 ML AMPUL IV PRN ×2 (09:07)
[2019-11-18] MEDS ORDERED: MEPERIDINE HCL/PF INJ 25 MG/1 ML DISP.SYRIN IV PRN (09:07)
[2019-11-18] MEDS ORDERED: PROMETHAZINE HCL INJ 25 MG/1 ML VIAL IV PRN (09:07)
--- NOTE | 2019-11-18 10:12 | Operative Report ---
Operative Report DATE OF SURGERY: 11/18/19 PREOPERATIVE DIAGNOSIS: C4-5 herniated nucleus pulposus and stenosis. C4-5 rad iculitis. Neck pain POSTOPERATIVE DIAGNOSIS: C4-5 herniated nucleus pulposus and stenosis. C4-5 radiculitis. Neck pain. Status post C4-5 anterior cervical discectomy and a rtificial disc replacement OPERATION: C4-5 anterior cervical discectomy and artificial disc replacement SURGEON: DARRICK SALTER 1ST ANGLESMITH HELPER: VALERIY CANTRELL ANESTHESIA: GA COMPLICATIONS: None ESTIMATED BLOOD LOSS: 150 cc PROCEDURE: The patient is brought into the room and placed under general anesthesia. The patient received clindamycin 900 mg within 1 hour of cut time IV. Neuro monitoring leads are placed on the patient as well as SCDs and a warming blanket. A bolster is placed between the shoulder blades. The medial epicondyles are well-padded and the arms are tucked at the sides. C arm fluoroscopy is utilized to verify the appropriate level. The skin is marked and after completion of prepping and draping and after appropriate timeout the cervical spine is incised in transverse fashion through the skin. Electrocautery was used to maintain hemostasis. The platysma was incised and the pretracheal fascia is dissected and dissection is carried out to the anterior cervical spine on the left side down to the prevertebral fascia. The skyline retractor was then positioned mediolaterally exposing the prevertebral fascia and the longus coli muscles are exposed bilaterally. Kitners are then used to expose the disc space. A bent needle is then placed into the disc space. C-arm fluoroscopy in the lateral position verify the C4-5 level. Panther pins are positioned into the uppermost part of the C4 and the inferior most part of the C5 vertebral bodies. The microscope was brought in and the Panther pin retractors are used to retract the soft tissues cephalad and caudad. Under the microscope and through the assistance of Griffin Cantrell physician department assistant a complete discectomy is carried out with resection of anterior spurs. The anterior osteophytes are resected the endplates were then also curetted to good bleeding bone. The posterior longitudinal ligament is then resected and disc herniation is resected as well foraminotomies were performed bilaterally. Epidural bleeders are coagulated with bipolar electrocautery. The appropriate sides disc replacement is found to be size Prestige LP 6 mm x 14 mm. After positioning and verification of good position in AP and lateral position using C-arm fluoroscopy the delgado are cut and then the appropriate size spacer implant is then positioned and tamped into place position is verified based on C-arm fluoroscopy and then cranial motor testing is obtained to verify good signals. The wound is then irrigated with copious amounts of irrigation. And a 7 flat Emir[place] drain is brought in inferior and lateral to the incision. The drain is affixed with a 3-0 nylon stitch and the platysma was reapproximated with 2-0 Vicryl in interrupted fashion and a running subcuticular 3-0 Monocryl stitch is used to close the skin wounds are dressed in benzoin Steri-Strips 4 x 4 and tape the drain is placed the negative RACHEL pressure the patient tolerated the procedure well
[2019-11-18] MEDS ORDERED: METHOCARBAMOL INJ/PF 1000 MG/10 ML SDV IV PRN (10:40)
[2019-11-18] MEDS ORDERED: METHOCARBAMOL INJ/PF 1000 MG/10 ML SDV ONE (10:43)
[2019-11-18] MEDS ORDERED: ACETAMINOPHEN SOLN 325 MG/10.15 ML UDCUP PO PRN (10:44)
[2019-11-18] MEDS ORDERED: HYDROCOD/ACETAMIN 7.5-325 MG/15 ML ORAL SOLN UDCUP PO PRN (10:45)
[2019-11-18] MEDS ORDERED: DIPHENHYDRAMINE HCL 25 MG CAPSULE PO PRN (10:50)
[2019-11-18] MEDS ORDERED: PHENOL/SODIUM PHENOLATE 100 SPRAY/177 ML BOTTLE PO PRN (10:53)
[2019-11-18] MEDS ORDERED: ONDANSETRON HCL INJ/PF 4 MG/2 ML SDV IV PRN (10:54)
[2019-11-18] MEDS ORDERED: PROMETHAZINE HCL 25 MG TABLET PO PRN (10:55)
[2019-11-18] MEDS: FENTANYL CITRATE INJ/PF 100 MCG/2 ML AMPUL IV PRN ×2 (10:55→11:00)
[2019-11-18] MEDS ORDERED: PROMETHAZINE HCL INJ 25 MG/1 ML VIAL IM PRN (10:56)
[2019-11-18] MEDS ORDERED: CYCLOBENZAPRINE HCL 10 MG TABLET PO PRN (10:56)
--- NOTE | 2019-11-18 12:01 | RADIOLOGY REPORT (SQ) ---
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 FLUOROSCOPY TIME: 0.6 minutes 2 images saved to PACS. TECHNIQUE: Intra-operative images acquired during surgical procedure to evaluate progress. NUMBER OF IMAGES: 2 LIMITATIONS: None. FINDINGS: Fluoroscopic intraoperative images are submitted for administrative purposes only. Please refer to the operative report full details regarding this procedure. IMPRESSION: IMAGE(S) OBTAINED DURING PROCEDURE. COMMENT: Quality ID [id number]: Final reports for procedures using fluoroscopy that document radiation exp osure indices, or exposure time and number of fluorographic images (if radiation exposure indices are not available) Please consult full operative report of the attending physician for description of the procedure. TECHNICAL DOCUMENTATION: JOB ID: [id number] 2010 [employer]- All Rights Reserved Reading location - IP/workstation name: [email or web address]
[2019-11-18] MEDS ORDERED: ACETAMINOPHEN SOLN 325 MG/10.15 ML UDCUP ONE (12:23)
[2019-11-18] MEDS ORDERED: HYDROCOD/ACETAMIN 7.5-325 MG/15 ML ORAL SOLN UDCUP ONE (12:29)
[2019-11-18] MEDS ORDERED: LIDOCAINE 2% INJ-PF (20 MG/ML) 2 ML AMPUL ONE (13:40)
[2019-11-18] MEDS ORDERED: DEXAMETHASONE SOD PHOSPHATE INJ 4 MG/1 ML VIAL ONE (13:40)
[2019-11-18] MEDS ORDERED: SUCCINYLCHOLINE CHLORIDE INJ 200 MG/10 ML VIAL ONE (13:40)
[2019-11-18] MEDS ORDERED: IBUPROFEN 800 MG TABLET ONE (13:47)
[2019-11-18] MEDS ORDERED: FAMOTIDINE INJ/PF 20 MG/2 ML SDV IV ONE ×2 (13:55→14:30)
[2019-11-18] MEDS ORDERED: PHENOL/SODIUM PHENOLATE 100 SPRAY/177 ML BOTTLE PO SCH (14:00)
[2019-11-18] MEDS ORDERED: IBUPROFEN 800 MG TABLET PO SCH (14:00)
[2019-11-18] MEDS ORDERED: CYCLOBENZAPRINE HCL 10 MG TABLET ONE (15:35)
[2019-11-18] MEDS ORDERED: CYCLOBENZAPRINE HCL 10 MG TABLET PO ONE (16:00)
[2019-11-18 17:56] VITALS: BP 131/87
[2019-11-18] MEDS ORDERED: SENNOSIDES/DOCUSATE 8.6-50 MG 1 EACH TABLET PO SCH (18:00)
--- NOTE | 2019-11-19 08:45 | RADIOLOGY REPORT (SQ) ---
EXAM DESCRIPTION: NO G FLUORO IMAGES COMPLETED DATE/TIME: 11/18/2019 10:16 am REASON FOR STUDY: CERVICAL ARTIFICAL DISC REPLACEMENT M50.10 CERVICAL DISC DISORDER W RADICULOPATHY , UNSP CERVICAL M50.30 OTHER CERVICAL DISC DEGENERATION, UNSP CERVICAL REGIO M48.02 SPINAL STENOSIS , CERVICAL REGION COMPARISON: None. FLUOROSCOPY TIME: 0.6 minutes 2 Images saved to PACS TECHNIQUE: Intra-operative images acquired during surgical procedure to evaluate progress. NUMBER OF IMAGES: 2 LIMITATIONS: None. FINDINGS: Fluoroscopic intraoperative images are submitted for administrative purposes only. Please refer to the operative report for full details regarding this procedure. IMPRESSION: IMAGE(S) OBTAINED DURING PROCEDURE. COMMENT: Quality ID [id number]: Final reports for procedures using fluoroscopy that document radiation exp osure indices, or exposure time and number of fluorographic images (if radiation exposure indices are not available) Please consult full operative report of the attending physician for description of the procedure. TECHNICAL DOCUMENTATION: JOB ID: [id number] 2010 [employer]- All Rights Reserved Reading location - IP/workstation name: [email or web address]
== END 2019-11-18 16:30 | disposition home or self-care (01) ==
LOC: UNDOADMIN 05:31 → INOR 05:31 → ASU 1 05:31 → EDSTATUS 09:00 → ASU 1 16:30 → UNDODISIN 16:30
PROVIDERS: ATTEND Orthopaedic Surgery
DX: M50.121 Cervical disc disorder at C4-C5 level with radiculopathy (principal); M48.02 Spinal stenosis, cervical region; M50.30 Other cervical disc degeneration, unspecified cervical region; M50.10 Cervical disc disorder with radiculopathy, unspecified cervical region; D64.9 Anemia, unspecified; M35.9 Systemic involvement of connective tissue, unspecified; J45.909 Unspecified asthma, uncomplicated; Z90.49 Acquired absence of other specified parts of digestive tract; Z98.84 Bariatric surgery status; Z88.2 Allergy status to sulfonamides; Z88.8 Allergy status to other drugs, medicaments and biological substances; Z03.818 Encounter for observation for suspected exposure to other biological agents ruled out
CPT/HCPCS: 36415; 670; 72040; 80048; 81025; 85025; 87070; 87635; C9803; J0131; J0330; J1100; J1170; J2250; J2270; J2550; J2704; J2800; J3010; J3490; S0028